=== PATIENT | female | born 1965 | race Caucasian/White ===

== ENCOUNTER 2021-07-23 15:24 | Emergency (ER) | payer SELFPAY ==
[~2021-07-23] VITALS: Ht 165.1 cm; Wt 45.4 kg
[~2021-07-23 15:24] MED LIST: ALBUTEROL1.25 MG/3; AMOXICILLIN875 MG PO; BENTYL10 MG PO; CLARITHROMYCIN250 MG PO; GUAIASORB DM L118 ML PO; K-TAB10 MEQ PO; LORAZEPAM1 MG PO; OMEPRAZOLE20 MG PO; PREDNISONE20 MG PO; SUDAFED 12 HOU120 MG; ZOFRAN ODT4 MG PO
--- OUTSIDE RECORDS SUMMARY | 2021-07-23 15:26 | XMS ---
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 Tomas has no Care Guidelines for this patient. Jamie VISIT COUNT (12 MO.) 1 ASHA Luo TOTAL 1 NOTE: Visits indicate total known visits. ED/UCC VISIT TRACKING (12 MO.) 07/23/2021 15:25 ASHA Schmidt OR TYPE: Emergency COMPLAINT: - DIZZINESS INPATIENT VISIT TRACKING (12 MO.) No inpatient visits to display in this time frame [email or web address]
--- NOTE | 2021-07-26 16:34 | EKG ---
[facility] [address] [place], [place] [address] Signed Sinus bradycardia Otherwise normal ECG No previous ECGs available Confirmed by TORIE BYRNE MD ([id number]) on 07/26/2021 4:34:40 PM Electronically Signed By: TORIE BYRNE MD 07/26/21 1634 PATIENT NAME: RAF JIMÉNEZ ENZO Electrocardiogram DATE OF : 63 PHYSICIAN: TORIE BYRNE MD REPORT #: [id number] REPORT IS CONFIDENTIAL AND NOT TO BE RELEASED WITHOUT AUTHORIZATION
== END 2021-07-23 18:10 | disposition home or self-care (01) ==
LOC: ED 15:24
DX: H60.92 Unspecified otitis externa, left ear (principal); F17.200 Nicotine dependence, unspecified, uncomplicated; Z88.2 Allergy status to sulfonamides; Z88.5 Allergy status to narcotic agent
CPT/HCPCS: 80048; 85025; 93005; 93010; 99284-25; J7030

== ENCOUNTER 2024-09-05 13:48 | Emergency (ER) | payer SELFPAY ==
[~2024-09-05] VITALS: Ht 165.1 cm; Wt 48.5 kg
[2024-09-05] MEDS ORDERED: ONDANSETRON 4 MG TAB ODT SL ONE (14:45)
[2024-09-05] MEDS ORDERED: ACETAMINOPHEN 500 MG TAB PO ONE (16:00)
[2024-09-05] MEDS ORDERED: ONDANSETRON 4 MG HOME.PACK SL ONE (16:30)
[2024-09-05 16:51] VITALS: BP 142/97
== END 2024-09-05 16:51 | disposition home or self-care (01) ==
LOC: ED 13:48
DX: B34.9 Viral infection, unspecified (principal); F17.200 Nicotine dependence, unspecified, uncomplicated; Z88.2 Allergy status to sulfonamides; Z88.5 Allergy status to narcotic agent
CPT/HCPCS: 99283; A9270

== ENCOUNTER 2024-09-11 18:20 | Emergency (ER) | payer SELFPAY ==
[~2024-09-11] VITALS: Ht 165.1 cm; Wt 46.3 kg
[2024-09-11] MEDS ORDERED: ondansetron HCL 4 MG/2 ML VIAL IV ONE (18:45)
[2024-09-11] MEDS ORDERED: AMBIEN5 MG PO (18:53)
[2024-09-11 19:12] LABS: BASOPHILS 0.5 % (0-2); EOSINOPHILS 0.5 % (0-6); HEMATOCRIT 39.3 % (35.0-50.0); HEMOGLOBIN 13.4 g/dL (12.0-18.0); LYMPHOCYTES 57.1 % (24-44); MCH 28.6 (27-36); MCHC 34.2 g/dl (30-36); MCV 83.7 fl (81-99); NEUTROPHILS 32.9 % (39-80); PLATELET COUNT 132 K/uL (140-440); RBC 4.69 M/ul (4.3-5.7)
[2024-09-11] MEDS ORDERED: KETOROLAC TROMETHAMINE 30 MG/ML VIAL IV ONE (19:15)
[2024-09-11] MEDS ORDERED: SODIUM CHLORIDE 0.9% 1,000 ML IV ONE (19:15)
[2024-09-11 19:26] LABS: ALBUMIN 3.8 g/dL (3.4-5.0); ALBUMIN/GLOBULIN RATIO 0.97 (1.1-2.4); ANION GAP 16.9 (7-21); BILIRUBIN, TOTAL 0.3 mg/dL (0.2-1.0); BUN/CREATININE RATIO 13.22 (6.0-28.6); CALCIUM 10.4 mg/dL (8.5-10.1); CREATININE, SERUM 1.21 mg/dL (0.55-1.02); MAGNESIUM 1.3 mg/dL (1.8-2.4); POTASSIUM 3.9 mmol/L (3.5-5.1); PROTEIN, TOTAL 7.7 g/dL (6.4-8.2)
[2024-09-11 20:28] LABS: INFLUENZA B NAA NEGATIVE (NEGATIVE); RESPIRATORY SYNCYTIAL VIR NAA NEGATIVE (NEGATIVE)
[2024-09-11] MEDS ORDERED: MAGNESIUM SULFATE 2 GM/50 ML BAG IV ONE (20:45)
[2024-09-11] MEDS ORDERED: ONDANSETRON ODT8 MG PO (20:51)
[2024-09-11] MEDS ORDERED: TRAMADOL HCL50 MG PO (20:51)
[2024-09-11] MEDS ORDERED: PROMETHEGAN25 MG PR (20:51)
[2024-09-11] MEDS ORDERED: MAGNESIUM OXID400 M1 PO (20:51)
[2024-09-11] MEDS ORDERED: LOMOTIL TABLET1 EACH PO (20:53)
[2024-09-11] MEDS ORDERED: PROMETHAZINE HCL 25 MG SUPP. HOME.PACK PR ONE (21:00)
[2024-09-11] MEDS ORDERED: ONDANSETRON 4 MG HOME.PACK SL ONE (21:00)
[2024-09-11 22:00] VITALS: BP 145/93
== END 2024-09-11 22:00 | disposition home or self-care (01) ==
LOC: ED 18:20
PROVIDERS: Family Medicine
DX: J10.1 Influenza due to other identified influenza virus with other respiratory manifestations (principal); E83.42 Hypomagnesemia; F17.200 Nicotine dependence, unspecified, uncomplicated; Z88.2 Allergy status to sulfonamides; Z88.5 Allergy status to narcotic agent; Z79.899 Other long term (current) drug therapy
CPT/HCPCS: 36415; 74177; 80053; 83690; 83735; 85025; 87502; 96375; 99284-25; A9270; J1885; J2405; J3475; J7030; Q9967; U0002

== ENCOUNTER 2025-05-15 16:16 | Emergency (ER) | payer OTHER ==
[~2025-05-15] VITALS: Ht 165.1 cm; Wt 46.8 kg
[~2025-05-15 16:16] MED LIST changes: +AMBIEN5 MG PO; +LOMOTIL TABLET1 EACH PO; +MAGNESIUM OXID400 M1 PO; +ONDANSETRON ODT8 MG PO; +PROMETHEGAN25 MG PR; +TRAMADOL HCL50 MG PO
[2025-05-15] MEDS ORDERED: ACYCLOVIR800 MG PO (16:35)
[2025-05-15] MEDS ORDERED: ONDANSETRON 4 MG TAB ODT SL ONE (17:00)
[2025-05-15] MEDS ORDERED: HYDROCODONE/ACETA 5/325 TAB PO ONE (17:00)
[2025-05-15] MEDS ORDERED: LIDOCAINE HCL 4% 1 EACH PATCH TD ONE (17:00)
[2025-05-15] MEDS ORDERED: ONDANSETRON ODT4 MG PO (17:28)
[2025-05-15] MEDS ORDERED: ZOSTRIX56.6 GM TOP (17:28)
[2025-05-15] MEDS ORDERED: HYDROCODON-ACE1 EA10 PO (17:28)
[2025-05-15] MEDS ORDERED: PREDNISONE20 MG PO (17:28)
[2025-05-15] MEDS ORDERED: predniSONE 20 MG TAB PO ONE (17:30)
[2025-05-15] MEDS ORDERED: MIRALAX119 GM PO (17:44)
[2025-05-15 17:49] VITALS: BP 151/105
== END 2025-05-15 17:50 | disposition home or self-care (01) ==
LOC: ED 16:16
DX: B02.9 Zoster without complications (principal); Z88.2 Allergy status to sulfonamides; Z88.5 Allergy status to narcotic agent; Z79.899 Other long term (current) drug therapy; F17.200 Nicotine dependence, unspecified, uncomplicated
CPT/HCPCS: 99282; A9270; J7512

== ENCOUNTER 2025-05-16 15:45 | Emergency (ER) | payer OTHER ==
[~2025-05-16] VITALS: Ht 165.1 cm; Wt 46.8 kg
--- NOTE | ~2025-05-16 | EKG ---
[facility] [address] [facility] [place], [place] [address] Draft EKG completed, results pending confirmation PATIENT NAME: RAF JIMÉNEZ Electrocardiogram DATE OF : 63 PHYSICIAN: PRELIMINARY REPORT #: [id number] REPORT IS CONFIDENTIAL AND NOT TO BE RELEASED WITHOUT AUTHORIZATION
[~2025-05-16 15:45] MED LIST changes: +ACYCLOVIR800 MG PO; +HYDROCODON-ACE1 EA10 PO; +MIRALAX119 GM PO; +ONDANSETRON ODT4 MG PO; +ZOSTRIX56.6 GM TOP
[2025-05-16] MEDS ORDERED: PANTOPRAZOLE SODIUM 40 MG/10 ML VIAL IV ONE (16:30)
[2025-05-16] MEDS ORDERED: HYDROmorphone HCL 1 MG/ML SYR IV PRN (16:30)
[2025-05-16] MEDS ORDERED: SODIUM CHLORIDE 0.9% 1,000 ML IV ONE (16:30)
[2025-05-16] MEDS ORDERED: LIDOCAINE & ANTACID 35 ML BTL PO ONE (16:30)
[2025-05-16 17:00] LABS: BLOOD/HGB, URINE NEGATIVE (Negative); KETONE, URINE NEGATIVE (Negative); LEUK ESTERASE, URINE NEGATIVE (negative); NITRITE, URINE NEGATIVE (negative)
[2025-05-16 17:08] LABS: MCH 28.6 PG (25.6-32.2); MCHC 33.3 g/dL (32.2-35.5); MCV 85.9 fL (79.4-94.8); RBC 3.98 M/uL (3.93-5.22)
[2025-05-16 17:28] LABS: EOSINOPHILS, MANUAL DIFF 3; LYMPHOCYTES, MANUAL DIFF 17; MONOCYTES, MANUAL DIFF 3; NEUTROPHILS, MANUAL DIFF 77
[2025-05-16 17:29] LABS: ALT (SGPT) 14 U/L (14-59); AST (SGOT) 12 U/L (15-37); GLOMERULAR FILTRATION RATE,EST 65 mL/min (>60); PROTEIN, TOTAL 6.5 g/dL (6.4-8.2); UREA NITROGEN 15 mg/dL (7-18)
[2025-05-16] MEDS ORDERED: DEXTROSE 5% - NACL 0.9% 1,000 ML IV SCH (20:00)
[2025-05-17 09:00] VITALS: BP 153/82
== END 2025-05-17 08:50 | disposition short-term general hospital (02) ==
LOC: ED 15:45
PROVIDERS: Emergency Medicine
DX: K85.90 Acute pancreatitis without necrosis or infection, unspecified (principal); K80.50 Calculus of bile duct without cholangitis or cholecystitis without obstruction; F17.200 Nicotine dependence, unspecified, uncomplicated; Z88.2 Allergy status to sulfonamides; Z88.5 Allergy status to narcotic agent; Z79.899 Other long term (current) drug therapy
CPT/HCPCS: 36415; 74177; 80053; 81003; 83690; 85025; 93005; 93010; 96361; 96374; 96375; 96376; 99285-25; G0480; J1171; J1790; J2405; J2470; J7030; J7042; Q9967

== ENCOUNTER 2025-06-21 15:29 | Emergency (ER) | payer OTHER ==
[~2025-06-21] VITALS: Ht 165.1 cm; Wt 46.0 kg
--- OUTSIDE RECORDS SUMMARY | ~2025-06-21 | XMS | Continuity of Care Document ---
Demographics + + + | Address | [address] [place] [address] | | | [place] [address] | + + + | Preferred Language | Unknown | + + + | Marital Status | | + + + | Restoration Affiliation | Unknown | + + + | Race | White | + + + | Ethnic Group | Not or | + + + Author + + + | Author | [facility] | + + + | Organization | [facility] | + + + | Address | [address] | | | [place] [address] | + + + | Phone | | + + + Care Team Providers + + + + | Care Personal Banking Advisor Name | Role | Phone | + + + + Unavailable | Unavailable | + + + + Unavailable | Unavailable | + + + + Allergies and Intolerances + + + + + + | date | description | facility | reaction | severity | + + + + + + | 2025-05-15 | Codeine | [facility] | Vomiting | Moderate | | 00:00 | | [facility] | | | + + + + + + | 2025-05-15 | Codeine | [facility] - | Vomiting | Moderate | | 00:00 | | [facility] | | | + + + + + + | 2025-05-15 | Codeine | [facility] - | Vomiting | Moderate | | 00:00 | | [facility] | | | + + + + + + | 2025-05-15 | UNK | [facility] - | (no reaction) | Severe | | 00:00 | | [facility] | | | + + + + + + Encounters No information. Functional Status No information. Immunizations No information. Medications + + + + | date | description | facility | + + + + | 2025-05-15 00:00 | ONDANSETRON | [facility] | | | | [facility] | + + + + | (no date) | PSEUDOEPHEDRINE HCL | [facility] | | | | [facility] | + + + + | 2025-05-15 00:00 | Capsaicin | [facility] | | | | [facility] | + + + + | (no date) | ACYCLOVIR | [facility] | | | | [facility] | + + + + | (no date) | CLARITHROMYCIN | [facility] | | | | [facility] | + + + + | (no date) | OMEPRAZOLE | [facility] | | | | [facility] | + + + + | (no date) | AMOXICILLIN | [facility] | | | | [facility] | + + + + | 2025-05-15 00:00 | [facility]SONE [facility] | | | | [facility] | + + + + | (no date) | ALBUTEROL SULFATE | [facility] | | | | [facility] | + + + + | (no date) | ZOLPIDEM TARTRATE | [facility] | | | | [facility] | + + + + | 2025-05-15 00:00 | HYDROCODONE | [facility] | | | BIT/ACETAMINOPHEN | [facility] | + + + + | 2025-05-15 00:00 | POLYETHYLENE GLYCOL 3350 | [facility] | | | | [facility] | + + + + Problems + + + + | date | description | facility | + + + + | 2025-05-15 00:00 | Herpes zoster | [facility] | | | | [facility] | + + + + Procedures No information. Results/Labs No information. Social History +--------+ + + | date | description | facility | +--------+ + + Vital Signs + + + +---------+ | date | measurement | value | units | + + + +---------+ | 2025-05-15 00:00 | BMI | 17.2 | kg/m2 | + + + +---------+ | 2025-05-15 00:00 | BP_diastolic | 105 | mmHg | + + + +---------+ | 2025-05-15 00:00 | BP_systolic | 151 | mmHg | + + + +---------+ | 2025-05-15 00:00 | heart_rate | 82 | /min | + + + +---------+ | 2025-05-15 00:00 | height_metric | 165.1 | cm | + + + +---------+ | 2025-05-15 00:00 | height_standard | 65 | in | + + + +---------+ | 2025-05-15 00:00 | o2_saturation | 98 | % | + + + +---------+ | 2025-05-15 00:00 | respiration_rate | 19 | /min | + + + +---------+ | 2025-05-15 00:00 | | 98.2 | F | | | temperature_standar | | | | | d | | | + + + +---------+ | 2025-05-15 00:00 | weight_metric | 46.799 | kg | + + + +---------+ | 2025-05-15 00:00 | weight_standard | 103.175 | lb | + + + +---------+"
[2025-06-21 17:07] LABS: BASOPHILS 0.5 % (0.1-1.2); EOSINOPHILS 2.5 % (0.7-5.8); LYMPHOCYTES 32.6 % (19.3-51.7); MCH 29.0 PG (25.6-32.2); MCHC 33.1 g/dL (32.2-35.5); MCV 87.6 fL (79.4-94.8); MONOCYTES 9.0 % (4.7-12.5); NEUTROPHILS 55.2 % (34.0-71.1); RBC 4.11 M/uL (3.93-5.22)
[2025-06-21 17:29] LABS: ALT (SGPT) 12.0 U/L (14-59); AST (SGOT) 11.0 U/L (15-37); GLOMERULAR FILTRATION RATE,EST 41.0 mL/min (>60); PROTEIN, TOTAL 7.3 g/dL (6.4-8.2); UREA NITROGEN 9.0 mg/dL (7-18)
[2025-06-21] MEDS ORDERED: LIDOCAINE & ANTACID 35 ML BTL PO ONE (18:00)
[2025-06-21] MEDS ORDERED: HYDROmorphone HCL 1 MG/ML SYR IV PRN (18:00)
[2025-06-21] MEDS ORDERED: SODIUM CHLORIDE 0.9% 1,000 ML IV ONE (18:00)
[2025-06-21] MEDS ORDERED: PANTOPRAZOLE SODIUM 40 MG TABEC PO ONE (19:15)
[2025-06-21 19:39] VITALS: BP 180/75
[2025-06-21 19:39] LABS: BLOOD/HGB, URINE NEGATIVE (Negative); KETONE, URINE NEGATIVE (Negative); LEUK ESTERASE, URINE NEGATIVE (negative); NITRITE, URINE NEGATIVE (negative)
== END 2025-06-21 19:35 | disposition home or self-care (01) ==
LOC: ED 15:29
PROVIDERS: Emergency Medicine
DX: K29.00 Acute gastritis without bleeding (principal); F17.200 Nicotine dependence, unspecified, uncomplicated
CPT/HCPCS: 36415; 80053; 81003; 83690; 85025; 96374; 96375; 99284-25; A9270; J1171; J2405; J7030